=== PATIENT | female | born 1990 | race Caucasian/White ===

== ENCOUNTER 2016-12-25 17:04 | Emergency (ER) | payer MEDICAID, OTHER ==
[2016-12-25 17:48] LABS: #Eosinphils 0.1 thou/uL (0.0-0.7); #Lymphocytes 1.2 thou/uL (1.20-3.40); #Monocytes 0.4 thou/uL (0.11-0.59); #Neutrophils 7.4 thou/uL (1.40-6.50); %Basophils 0.2 % (0.0-1.0); %Eosinophils 1.6 % (0.0-10.0); %Lymphocytes 12.8 % (21.0-51.0); %Monocytes 4.5 % (0.0-10.0); Hematocrit 32.1 % (36.0-47.0); Mean Platelet Volume 8.4 fL (7.4-10.4); Red Blood Cell (RBC) Count 3.75 mill/uL (4.20-5.40); White Blood Cell (WBC) Count 9.2 thou/uL (4.8-10.8)
[2016-12-25 18:04] LABS: ALT (SGPT) 10 U/L (8-55); AST (SGOT) 11 U/L (5-34); Alkaline Phosphatase 64 U/L (40-150); Anion Gap 13 mmol/L (10-20); BUN (Urea Nitrogen) 10 mg/dL (7.0-18.7); Bilirubin, Total 0.3 mg/dL (0.2-1.2); Calc. Creatinine Clearance 0 mL/min (70-130); Calcium 9.2 mg/dL (7.8-10.44); Carbon Dioxide 23 mmol/L (22-29); Chloride 106 mmol/L (98-107); Estimated GFR-MDRD Greater than 90; Globulin 3.2 g/dL (2.4-3.5); Protein, Total 6.8 g/dL (6.0-8.3)
--- NOTE | 2016-12-25 20:16 | ULT ---
ULTRASOUND OBSTETRICAL COMPLETE: 12/25/2016 HISTORY: A 26-year-old female with abdominal/pelvic pain and vaginal bleeding. FINDINGS: number: Willett. lie: Variable. Maternal cervix: 4 cm long and closed. Placenta: Anterior. No placenta previa. Amniotic fluid volume: Subjectively normal. heart rate: 141 bpm The following anatomy is visualized, with no evidence of anomalies: Head, four chamber heart, stomach, cord insertion, bladder, and three vessel cord. The rest of the anatomy is not well visualized. biometry: Head circumference (HC): 16.9 cm 19w 4d Biparietal diameter (BPD): 4.5 cm 19w 3d Abdominal circumference (AC): 15.6 cm 20w 5d Femur length (FL): 2.9 cm 19w 0d Average ultrasound age (AUA): 19w 4d Estimated date of confinement (EDC): 08/31/2017 Last menstrual period (LMP): 08/08/2016 Gestational age by LMP: 19w 6d Estimated weight (EFW): 319 g, +/- 47 g (0 lbs 11 oz, +/- 2 oz). IMPRESSION: 1. Live second trimester intrauterine gestation. 2. Estimated gestational age of 19 weeks, 4 days. 3. Variable lie. RAVEN Infante POS: [facility]
== END 2016-12-25 20:53 | disposition home or self-care (01) ==
LOC: ERS 17:04
DX: O20.9 Hemorrhage in early pregnancy, unspecified (principal); O99.332 Smoking (tobacco) complicating pregnancy, second trimester; F17.210 Nicotine dependence, cigarettes, uncomplicated; O99.342 Other mental disorders complicating pregnancy, second trimester; F32.9 Major depressive disorder, single episode, unspecified; Z3A.19 19 weeks gestation of pregnancy
CPT/HCPCS: 36415; 76805; 80053; 84702; 85025; 86850; 86900; 86901

== ENCOUNTER 2018-04-01 20:09 | Day surgery (SDC) | payer OTHER ==
--- NOTE | 2018-04-01 20:47 | PDOC.LDHP ---
Labor and Delivery H&P HPI: EGA: 25 weeks 6 days Twins CC: possible SROM Patient of Derrick Time: 2044 27 yo [id number]...with known twins (2 abs at first trimester), patient of Derrick, at 25 weeks 6 days here for LOF and possible contractions. States went for a nap and woke up with "wet around her and fluid came out on toilet". No fevers. Sxs since 1800 Review of Systems: no trauma, no fevers, no recent sex Current gestational age (weeks): 25 (6 days) Dating criteria: last menstrual period Grav: 7 Para: 4 OB History Details: x 4; 2 SABs Current complications: other (TWINS) Current medications: pre-lashanda vitamins Previous surgical history: none Allergies/Adverse Reactions: Allergies Allergy/AdvReac Type Severity Reaction Status Date / Time No Known Allergies Allergy Verified 01/30/15 17:40 Social history: none - Physical Exam Vital signs reviewed and normal: yes General: NAD Heart: RRR Lungs: CTAB Abdomen: gravid Extremeties: no edema - Assessment Twins at 25 weeks 6 days, patient of Derrick, possible SROM. - Plan Plan: observation in L&D (We will sterile spec now, amnisure now; get stat sono for EFW and CX length; If ROM...will need ABX for latency, and transfer based on EGA.)
--- NOTE | 2018-04-01 21:11 | PDOC.EVN ---
Event Note - Event Note Event Note: LAB CHECK: 02/2018 GC and Chl were negative
[2018-04-01 21:19] VITALS: BP 115/63; TEMP 98.7; BMI 31.4
[2018-04-01 21:23] LABS: Amnisure Test No Membranes Rupture (No Rupture)
[2018-04-01 21:25] LABS: Amnisure Internal Control QC ACCEPTABLE (ACCEPTABLE)
--- NOTE | 2018-04-01 21:54 | PDOC.EVN ---
Event Note - Event Note Event Note: amnisure is negative OK for outpatient care Sono in room now, then DC if no gross abnormalities
--- NOTE | 2018-04-01 23:22 | ULT ---
LIMITED ULTRASOUND OF THE CERVIX WITH ENDOVAGINAL IMAGING 04/01/18 HISTORY: Evaluate cervical length. FINDINGS/IMPRESSION: The cervix measures 3.18 cm in length. No fluid is seen in the endocervical canal. POS: [facility]
--- NOTE | 2018-04-01 23:36 | ULT ---
OB ULTRASOUND: 04/01/18 HISTORY: Twin intrauterine gestation. Possible premature rupture of membranes. FINDINGS: There is evidence of a twin intrauterine gestation. A membrane is not seen between either fetus. The placenta is located posteriorly without evidence of placenta previa. An amniotic fluid ind ex was calculated at 21.2 cm. The cervical length is 3.18 cm based on endovaginal imaging. TWIN A Cephalic presentation. heart rate of 141 beats per minute. measurements: Biparietal diameter 6.24 cm 25 weeks, 2 days Head circumference 22.65 cm 24 weeks, 5 days Abdominal circumference 21.62 cm 26 weeks, 1 day Femur length 4.64 cm 25 weeks, 3 days Gestational age by ultrasound of twin A at 25 weeks, 3 days with an ROLO on 07/12/2018. Estimated weight of twin A is 839 grams (1 lb. 14 oz). This represents 31 percentile for weight. Four chamber heart, stomach, bilateral kidneys and urinary bladder are visualized in twin A. A three vessel cord is difficult to delineate, but there is suggestion of flow on either side of the urinary bladder which suggests a three vessel cord. cord insertion has a normal appearance. Cerebellum is not well seen due to positioning of the fetus. spine is also not well evaluated on this exam. TWIN B Transverse lie. heart rate of 1571 beats per minute. measurements: Biparietal diameter 6.19 cm 25 weeks, 1 day Head circumference 23.06 cm 25 weeks, 1 day Abdominal circumference 20.63 cm 25 weeks, 1 day Femur length 4.66 cm 25 weeks, 4 days Gestational age by ultrasound of twin B at 25 weeks, 2 days with an ROLO on 07/13/2018. Estimated weight of twin B is 794 grams (1 lb. 12 oz). This represents 19th percentile for feta l weight. Four chamber heart, stomach, bilateral kidneys and urinary bladder are visualized in twin B and demon strate a normal sonographic appearance. A three vessel cord and cord insertion on twin B are not imag ed on this exam. spine and cerebellum are also not visualized. There were no definitive a nomalies appreciated. movement is documented within each fetus. IMPRESSION: 1. Twin intrauterine gestation without membrane visualized between each fetus. 2. Amniotic fluid index is increased at 21.2 cm. 3. The gestational age of twin A is 25 weeks, 3 days with ROLO on 07/12/18. 4. Estimated weight of Twin A is 839 grams (1 lb, 14 oz). 5. The gestational age of Twin B is 25 weeks, 2 days with ROLO on 07/13/18. 6. Estimated weight of Twin B is 794 grams (1 lb, 12 oz). 7. The cervical length based on endovaginal imaging is 3.16 cm. No fluid is seen within the endo cervical canal. POS: [facility]
[2018-04-04 14:14] LABS: Chlamydia by PCR Not Detected (NotDetected); GC by PCR Not Detected (NotDetected)
== END 2018-04-01 22:35 | disposition home or self-care (01) ==
LOC: L&D/OP 20:09
PROVIDERS: ATTEND Family Medicine
DX: O99.89 Other specified diseases and conditions complicating pregnancy, childbirth and the puerperium (principal); N89.8 Other specified noninflammatory disorders of vagina; O99.332 Smoking (tobacco) complicating pregnancy, second trimester; Z3A.25 25 weeks gestation of pregnancy
CPT/HCPCS: 76810; 84112; 87491; 87591; 99285

== ENCOUNTER 2022-05-13 09:43 | Inpatient (IN) | payer MEDICAID, SELFPAY ==
[2022-05-13] MEDS ORDERED: Ondansetron PF 4 MG/2 ML Vial IVP PRN (12:26)
[2022-05-13] MEDS ORDERED: Acetaminophen 325 MG TAB PO PRN (12:26)
[2022-05-13] MEDS ORDERED: Morphine 4 MG/ML VIAL SLOW IVP PRN (14:00)
[2022-05-13] MEDS: Lactated Ringer's 1,000 ML IV SCH (16:59)
[2022-05-13] MEDS: Famotidine/PF 20 mg/2ml Vial SLOW IVP SCH (21:49)
[2022-05-14] MEDS: Lactated Ringer's 1,000 ML IV SCH (03:37)
[2022-05-14 06:19] LABS: ALT (SGPT) 7 U/L (8-55); AST (SGOT) 11 U/L (5-34); Albumin 3.8 g/dL (3.5-5.0); Alkaline Phosphatase 55 U/L (40-110); Anion Gap 9 mmol/L (10-20); BUN (Urea Nitrogen) 9 mg/dL (7.0-18.7); Bilirubin, Direct 0.2 mg/dL (0.1-0.3); Bilirubin, Total 0.5 mg/dL (0.2-1.2); Calc. Creatinine Clearance 0 mL/min (70-130); Calcium 8.5 mg/dL (7.8-10.44); Carbon Dioxide 24 mmol/L (22-29); Chloride 110 mmol/L (98-107); Estimated GFR 89; Glucose 88 mg/dL (70-105); Magnesium 1.7 mg/dL (1.6-2.6); Potassium 3.7 mmol/L (3.5-5.1); Protein, Total 5.7 g/dL (6.0-8.3); Sodium 139 mmol/L (136-145)
[2022-05-14 06:33] LABS: #Eosinphils 0.1 thou/uL (0.0-0.7); #Lymphocytes 1.3 thou/uL (1.20-3.40); #Monocytes 0.3 thou/uL (0.11-0.59); %Basophils 0.2 % (0.0-1.0); %Eosinophils 2.4 % (0.0-10.0); %Lymphocytes 27.8 % (21.0-51.0); %Monocytes 6.6 % (0.0-10.0); Hemoglobin 12.3 g/dL (12.0-16.0); Mean Corpuscular HGB CONC 33.3 g/dL (32.0-36.0); Mean Corpuscular Hemoglobin 28.7 pg (27.0-31.0); Mean Corpuscular Volume 86.2 fl (78.0-98.0); Mean Platelet Volume 9.9 fL (7.4-10.4); Platelet Count 113 10x3/uL (130-400); Red Blood Cell (RBC) Count 4.28 mill/uL (4.20-5.40); White Blood Cell (WBC) Count 4.8 10x3/uL (4.8-10.8)
[2022-05-14] MEDS: Famotidine/PF 20 mg/2ml Vial SLOW IVP SCH (08:27)
[2022-05-14 12:58] VITALS: BP 110/82; TEMP 98
== END 2022-05-14 13:50 | disposition home or self-care (01) | DRG 389 ==
LOC: SJJU 09:49 → OBSVTOIN 12:26
PROVIDERS: ADMIT Internal Medicine; ATTEND Internal Medicine
DX: K56.609 Unspecified intestinal obstruction, unspecified as to partial versus complete obstruction (principal); N17.9 Acute kidney failure, unspecified; Z66 Do not resuscitate; K80.20 Calculus of gallbladder without cholecystitis without obstruction; F32.A Depression, unspecified; Z90.5 Acquired absence of kidney; Z98.890 Other specified postprocedural states; Z71.6 Tobacco abuse counseling; F17.210 Nicotine dependence, cigarettes, uncomplicated
CPT/HCPCS: 36415; 74018; 80048; 80076; 83735; 85025; J2270; J7120; S0028